=== PATIENT | female | born 1970 | race Caucasian/White ===

== ENCOUNTER 2025-06-09 19:55 | Inpatient (IN) | payer MEDICAID, MEDICARE, OTHER ==
[~2025-06-09] VITALS: Ht 162.6 cm; Wt 90.0 kg
[2025-06-09] MEDS ORDERED: 0.9% SODIUM CHLORIDE 10 ML SYRINGE IVP PRN (21:15)
[2025-06-09] MEDS: SODIUM CHLORIDE 0.9% 1,000 ML IV ONE (22:17)
[2025-06-09] MEDS ORDERED: MORPHINE SULFATE 2 MG/ML SYRINGE IVP ONE (22:45)
[2025-06-09] MEDS: MORPHINE SULFATE 4 MG/ML SYRINGE IVP ONE (23:00)
[2025-06-09] MEDS: METOCLOPRAMIDE HCL 5 MG/ML 2 ML VIAL IVP ONE (23:00)
[2025-06-09 23:01] LABS: PLATELET COUNT (AUTO) 280 K/uL (150-450); RED BLOOD CELL COUNT(AUTO) 4.19 MIL/uL (4.00-5.20); RED CELL DISTRIBUTION WIDTH 21.3 % (11.5-14.5); WHITE BLOOD COUNT (AUTO) 4.6 K/uL (4.5-11.0)
[2025-06-09 23:13] LABS: CALCIUM, TOTAL 8.7 mg/dL (8.8-10.5); CREATININE 0.71 mg/dL (0.60-1.30); GLOMERULAR FILTR. RATE CALC > 60 mL/min (>60); GLUCOSE,RANDOM 89 mg/dL (70-110); SODIUM SERUM 142 mmol/L (136-145); UREA NITROGEN, BLOOD 14 mg/dL (7-18)
[2025-06-09 23:18] LABS: ASPARTATE AMINOTRANSFERASE 24 U/L (15-37); TOTAL PROTEIN, SERUM 7.1 g/dL (6.4-8.2)
[2025-06-09 23:33] LABS: LACTIC ACID 3.1 mmol/L (0.4-2.0)
[2025-06-10 00:28] LABS: APPEARANCE,URINE CLEAR (CLEAR); GLUCOSE, URINE (UA) NEGATIVE (NEGATIVE); LEUKOCYTE ESTERASE ,URINE NEGATIVE (NEGATIVE); NITRATE,URINE NEGATIVE (NEGATIVE); OCCULT BLOOD,URINE LARGE (NEGATIVE); SPECIFIC GRAVITIY, URINE 1.028 (1.003-1.030)
[2025-06-10 00:31] LABS: SQUAMOUS EPITHELIAL CELL,UR Few /LPF (None Seen)
[2025-06-10] MEDS: LINEZOLID 600 MG/ISO-OSM 300 ML IV ONE (00:51)
[2025-06-10] MEDS: SODIUM CHLORIDE 0.9% 2,400 ML IV ONE (00:51)
[2025-06-10] MEDS ORDERED: ACETAMINOPHEN 325 MG TABLET PO PRN (01:00)
[2025-06-10] MEDS ORDERED: MORPHINE SULFATE 2 MG/ML SYRINGE IVP ONE (01:15)
[2025-06-10 01:25] LABS: COVID AG,FIA SOURCE NASAL SWAB
[2025-06-10 01:29] LABS: INFLUENZA TYPE A NEGATIVE FOR TYPE A (NEGATIVE); INFLUENZA TYPE B NEGATIVE FOR TYPE B (NEGATIVE); SARS-COV2 (COVID) ANTIGEN,FIA Negative (Negative)
[2025-06-10] MEDS: MORPHINE SULFATE 4 MG/ML SYRINGE IVP ONE ×2 (01:42→12:08)
[2025-06-10] MEDS: ONDANSETRON HCL 4 MG/2 ML VIAL IVP ONE (01:42)
[2025-06-10] MEDS: RINGERS SOLUTION,LACTATED 1,000 ML IV SCH (02:45)
[2025-06-10 03:08] VITALS: BP 127/66; PULSE 84; RESP 18; TEMP 98.4; O2SAT 94
[2025-06-10] MEDS: ONDANSETRON HCL 4 MG/2 ML VIAL IVP PRN (04:24)
[2025-06-10] MEDS: MORPHINE SULFATE 4 MG/ML SYRINGE IVP PRN (04:36)
[2025-06-10 07:16] VITALS: BP 125/61; PULSE 87; RESP 18; TEMP 98.6; O2SAT 96
[2025-06-10] MEDS: HEPARIN SODIUM,PORCINE 5,000 UNITS/ML VIAL SQ SCH (08:11)
[2025-06-10] MEDS: DOCUSATE SODIUM 100 MG CAPSULE PO SCH (08:11)
[2025-06-10 11:00] VITALS: BP 134/70; PULSE 77; RESP 19; TEMP 98.1; O2SAT 97
[2025-06-10] MEDS ORDERED: GABA-1181 PO (11:12)
[2025-06-10] MEDS ORDERED: APIX5TAB PO (11:12)
[2025-06-10] MEDS ORDERED: CYCL-448 PO (11:12)
[2025-06-10] MEDS ORDERED: ESCI20TA87 PO (11:12)
[2025-06-10] MEDS ORDERED: BUPR-344 PO (11:12)
[2025-06-10] MEDS ORDERED: BUPR-50 PO (12:45)
[2025-06-10] MEDS: LINEZOLID 600 MG/ISO-OSM 300 ML IV SCH (14:59)
[2025-06-10] MEDS: GABAPENTIN 300 MG CAPSULE PO SCH (14:59)
[2025-06-10] MEDS: BuPROPion HCL XL 150 MG ER TABLET PO SCH (14:59)
[2025-06-10 15:15] VITALS: BP 137/67; PULSE 86; RESP 19; TEMP 98.2; O2SAT 98
[2025-06-10] MEDS: CYCLOBENZAPRINE HCL 10 MG TABLET PO SCH (15:27)
[2025-06-10] MEDS: ESCITALOPRAM OXALATE 20 MG TABLET PO SCH (15:27)
[2025-06-10] MEDS ORDERED: APIXABAN 5 MG TABLET PO SCH (21:00)
[2025-06-11] MEDS ORDERED: ESCITALOPRAM OXALATE 20 MG TABLET PO SCH (09:00)
[2025-06-11] MEDS ORDERED: BuPROPion HCL XL 150 MG ER TABLET PO SCH (09:00)
== END 2025-06-10 16:55 | disposition left against medical advice (07) | DRG 690 ==
LOC: EMS 19:55 → EDH 06-10 01:00 → 5N 06-10 02:39
PROVIDERS: ADMIT Internal Medicine; ATTEND Internal Medicine
DX: N12 Tubulo-interstitial nephritis, not specified as acute or chronic (principal); E87.20 Acidosis, unspecified; G82.20 Paraplegia, unspecified; Z53.29 Procedure and treatment not carried out because of patient's decision for other reasons; F32.A Depression, unspecified; N31.9 Neuromuscular dysfunction of bladder, unspecified; Z20.822 Contact with and (suspected) exposure to COVID-19; Z87.440 Personal history of urinary (tract) infections; Z88.1 Allergy status to other antibiotic agents; Z88.2 Allergy status to sulfonamides; Z88.3 Allergy status to other anti-infective agents; Z90.710 Acquired absence of both cervix and uterus; Z79.899 Other long term (current) drug therapy; Z74.01 Bed confinement status
CPT/HCPCS: 71045; 74176; 80048; 80076; 81001; 83605; 84145; 85025; 85610; 87040; 87804; 93005; 99285; J1644; J2020; J2270; J2405; J2765; J7120; 36415-L1; 36415-TC